=== PATIENT | male | born 1970 | race Caucasian/White ===

== ENCOUNTER 2017-12-11 15:37 | Emergency (ER) | END 2017-12-11 18:34 | disposition home or self-care (01) ==

== ENCOUNTER 2018-11-13 08:58 | Emergency (ER) | payer MEDICAID ==
[~2018-11-13] VITALS: Ht 172.7 cm; Wt 65.0 kg
[~2018-11-13 08:58] MED LIST: CEPH-443 PO; CLOT30CR24 TOP; Ciprofloxacin PO; IBUP-1542 PO; INSU100I14 SC; LANT3I SC; RISP-7 PO
[2018-11-13] MEDS ORDERED: LORAZEPAM 2 MG INJ IM STA (09:00)
[2018-11-13] MEDS ORDERED: HALOPERIDOL 5 MG INJ IM STA (09:00)
[2018-11-13 09:30] VITALS: Ht 172.7 cm; Wt 65.0 kg
--- NOTE | 2018-11-13 11:04 | PSY ---
Date/Time of Note Date/Time of Note DATE: 11/13/18 TIME: 11:03 Psychiatric Subjective Eval Subjective Evaluation Patient location: emergency Chief Complaint: BIBA FOR PSYCHOSIS,HYPERVERBAL,HYPERELIGIOUS History of present illness ATTEMPTED TO SPEAK TO THE PT BUT HE IS TOO DROWSY. Medical history Problems Medical Problems: (1) Acute psychosis Status: Acute (2) Acute psychosis Status: Acute (3) Altered level of consciousness Status: Acute (4) Cellulitis of right ankle Status: Acute (5) Foot ulcer Status: Acute (6) New onset type 2 diabetes mellitus Status: Acute (7) Tinea pedis Status: Acute Allergies: Coded Allergies: No Known Allergy (Unverified , 10/18/14) Unknown: Unable to obtain (Unverified , 06/15/15) Psychiatric Objective Eval Mental Status Examination: Laboratory Results Laboratory Tests Test 11/13/18 10:00 White Blood Count 6.7 10^3/ul Red Blood Count 4.89 10^6/ul Hemoglobin 14.5 g/dl Hematocrit 42.3 % Mean Corpuscular Volume 86.5 fl Mean Corpuscular Hemoglobin 29.7 pg Mean Corpuscular Hemoglobin Concent 34.3 g/dl Red Cell Distribution Width 11.9 % Platelet Count 267 10^3/UL Mean Platelet Volume 10.1 fl Immature Granulocytes % 0.500 % Neutrophils % 63.1 % Lymphocytes % 22.4 % Monocytes % 6.2 % Eosinophils % 7.2 % Basophils % 0.6 % Nucleated Red Blood Cells % 0.0 /100WBC Immature Granulocytes # 0.030 10^3/ul Neutrophils # 4.2 10^3/ul Lymphocytes # 1.5 10^3/ul Monocytes # 0.4 10^3/ul Eosinophils # 0.5 10^3/ul Basophils # 0.0 10^3/ul Nucleated Red Blood Cells # 0.0 10^3/ul Sodium Level 137 mmol/L Potassium Level 4.6 mmol/L Chloride Level 96 mmol/L Carbon Dioxide Level 25 mmol/L Anion Gap 16 Blood Urea Nitrogen 19 mg/dl Creatinine 0.63 mg/dl Est Glomerular Filtrat Rate mL/min > 60 mL/min Glucose Level 452 mg/dl Calcium Level 9.9 mg/dl Total Bilirubin 0.3 mg/dl Direct Bilirubin 0.00 mg/dl Indirect Bilirubin 0.3 mg/dl Aspartate Amino Transf (AST/SGOT) 29 IU/L Alanine Aminotransferase (ALT/SGPT) 19 IU/L Alkaline Phosphatase 128 IU/L Total Protein 8.0 g/dl Albumin 4.6 g/dl Globulin 3.40 g/dl Albumin/Globulin Ratio 1.35 Ethyl Alcohol Level < 10.0 mg/dl Assessment and Plan Assessment/Diagnosis Diagnosis PSYCHOSIS Recommendation/Plan Discharge Disposition: Other (Other) Legal Status: Place involuntary hold Other PLEASE CALL BACK FOR THE CONSULTATION AFTER THE PT WILL BE FULLY AWAKE AND ALERT. HERRERA PRAKASH MD Nov 13, 2018 11:04
--- NOTE | 2018-11-13 11:22 | ERD ---
ER Documentation Chief Complaint Chief Complaint BIBA FOR PSYCHOSIS,HYPERVERBAL,HYPERELIGIOUS HPI Patient is a 47-year-old male with diabetes who presents saying "I am Jeff". Please note the history and physical exam is limited secondary to the patient's agitation and flight of ideas. He is resetting yarsani phrases. He was b rought in by ambulance. He came from an apartment. Upon review of old medical records this is the patient's fifth visit to the ER since 2014. ROS All systems reviewed and are negative except as per history of present illness. Medications Home Meds Active Scripts Ibuprofen* (Motrin*) 600 Mg Tab, 600 MG PO Q6H PRN for PAIN AND OR ELEVATED TEMP , #30 TAB Prov:BRUCE KRISHNAMURTHY NP 12/11/17 Cephalexin* (Keflex*) 500 Mg Capsule, 500 MG PO QID for 10 Days, CAP Prov:BRUCE KRISHNAMURTHY NP 12/11/17 Clotrimazole* (Clotrimazole* AF) 1% - 30 Gm Cream.gm., 1 APPLIC TOP BID for 7 Days, TUB Prov:BRUCE KRISHNAMURTHY NP 12/11/17 Insulin Lispro (Humalog) 100 U/Ml Insuln.pen, 18 UNITS SC WITH MEALS for 30 Days, EA Prov:SHANE HERNANDEZ MD 04/24/15 [Ciprofloxacin] 500 MG TAB No Conflict Check, 500 MG PO BID@06,18 for 3 Days, TAB Prov:SHANE HERNANDEZ MD 04/24/15 Risperidone* (Risperdal*) 1 Mg Tab, 1 MG PO BID for 30 Days Prov:SHANE HERNANDEZ MD 04/24/15 Insulin Glargine* (Lantus*) 100 Unit/Ml Soln, 36 UNIT SC DAILY for 30 Days Prov:SHANE HERNANDEZ MD 04/24/15 Allergies Allergies: Coded Allergies: No Known Allergy (Unverified , 10/18/14) Unknown: Unable to obtain (Unverified , 06/15/15) PMhx/Soc Hx Psychiatric Problems: Yes Hx Miscellaneous Medical Probl: Yes (Diabetes) Smoking Status: Unknown if ever smoked FmHx Unable to obtain Physical Exam Vitals Vital Signs Date Temp Pulse Resp B/P (MAP) Pulse Ox O2 O2 Flow FiO2 Time Delivery Rate 11/13/18 98.7 77 18 165/132 98 09:30 (143) Physical Exam Const: Agitated and residing yarsani phrases Head: Atraumatic Eyes: Normal Conjunctiva ENT: Normal External Ears, Nose and Mouth. Neck: Full range of motion. No meningismus. Resp: Clear to auscultation bilaterally Cardio: Regular rate and rhythm, no murmurs Abd: Soft, non tender, non distended. Normal bowel sounds Skin: No petechiae or rashes Back: No midline or flank tenderness Ext: No cyanosis, or edema Neur: Awake and alert, moves all 4 extremities Psych: Psychomotor agitation Result Diagram: 11/13/18 1000 11/13/18 1000 Results 24 hrs Laboratory Tests Test 11/13/18 10:00 White Blood Count 6.7 10^3/ul Red Blood Count 4.89 10^6/ul Hemoglobin 14.5 g/dl Hematocrit 42.3 % Mean Corpuscular Volume 86.5 fl Mean Corpuscular Hemoglobin 29.7 pg Mean Corpuscular Hemoglobin Concent 34.3 g/dl Red Cell Distribution Width 11.9 % Platelet Count 267 10^3/UL Mean Platelet Volume 10.1 fl Immature Granulocytes % 0.500 % Neutrophils % 63.1 % Lymphocytes % 22.4 % Monocytes % 6.2 % Eosinophils % 7.2 % Basophils % 0.6 % Nucleated Red Blood Cells % 0.0 /100WBC Immature Granulocytes # 0.030 10^3/ul Neutrophils # 4.2 10^3/ul Lymphocytes # 1.5 10^3/ul Monocytes # 0.4 10^3/ul Eosinophils # 0.5 10^3/ul Basophils # 0.0 10^3/ul Nucleated Red Blood Cells # 0.0 10^3/ul Sodium Level 137 mmol/L Potassium Level 4.6 mmol/L Chloride Level 96 mmol/L Carbon Dioxide Level 25 mmol/L Anion Gap 16 Blood Urea Nitrogen 19 mg/dl Creatinine 0.63 mg/dl Est Glomerular Filtrat Rate mL/min > 60 mL/min Glucose Level 452 mg/dl Calcium Level 9.9 mg/dl Total Bilirubin 0.3 mg/dl Direct Bilirubin 0.00 mg/dl Indirect Bilirubin 0.3 mg/dl Aspartate Amino Transf (AST/SGOT) 29 IU/L Alanine Aminotransferase (ALT/SGPT) 19 IU/L Alkaline Phosphatase 128 IU/L Total Protein 8.0 g/dl Albumin 4.6 g/dl Globulin 3.40 g/dl Albumin/Globulin Ratio 1.35 Salicylates Level Pending Acetaminophen Level Pending Ethyl Alcohol Level < 10.0 mg/dl Current Medications Medications Dose Sig/Roberta Start Time Status Last (Trade) Ordered Route PRN Stop Time Admin Dose Reason Admin Lorazepam 2 mg ONCE STAT 11/13/18 DC 11/13/18 (Ativan) IM 09:00 11/13/18 09:28 09:01 Haloperidol 5 mg ONCE STAT 11/13/18 DC 11/13/18 (Haldol) IM 09:00 11/13/18 09:28 09:01 Insulin 20 unit ONCE ONCE 11/13/18 Human SC 11:30 11/13/18 Lispro 11:31 (Humalog) Procedures/MDM Patient is a 47-year-old male who presents with agitation and what appears to be acute psychosis. The patient has hyperglycemia but no signs of diabetic ketoacidosis. The patient was given Haldol and Ativan for his safety and safety of staff. He was given Humalog 20 units subcutaneous for hyperglycemia but he has no signs of diabetic ketoacidosis. The patient is medically clear for psychiatric transfer at this time. The patient was seen by Dr. Ro from psychiatry but was not awake to get a good psychiatric evaluation done. Critical Care: Time: 35 minutes excluding all billable procedures. Treatments/Evaluations: Close monitoring and treatment of unstable vital signs, cardiorespiratory, and neurologic status, while maintaining tight balance of fluid, respiratory, and cardiac interventions. Departure Diagnosis: Primary Impression: Acute psychosis Additional Impression: Hyperglycemia Condition: ANGIE Vasques MD Nov 13, 2018 11:22
[2018-11-13] MEDS ORDERED: INSULIN LISPRO 100 UNIT/ML VIAL SC ONE (11:30)
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
--- NOTE | 2018-11-14 05:15 | EN ---
Date/Time of Note Date/Time of Note DATE: 11/14/18 TIME: 05:15 ER Progress Note Psychiatric Observation Note: Indication: Psychosis Duration: Greater than 20 hours Family history: As documented in original HPI The patient was observed with serial exams over the above timeframe. The patient continued to be well-appearing, and observation continued without complication. All other needs have been met during emergency department stay. Routine psychiatric medications ordered: Appreciated Hold status: Patient is still pending placement. Patient was relatively docile ADELE LOTT Nov 14, 2018 05:15
[2018-11-14] MEDS ORDERED: INSULIN REGULAR, HUMAN 100 UNIT/1 ML 3ML VIAL SC ONE (11:00)
--- NOTE | 2018-11-14 12:49 | EN ---
Date/Time of Note Date/Time of Note DATE: 11/14/18 TIME: 12:49 ER Progress Note Patient resting comfortably in the emergency department under my supervision. Blood sugar was noted to be elevated and was controlled with insulin. Patient remains pending psychiatric evaluation as he seems to still have ongoing symptoms that require hospitalization. YASIR GILMORE Nov 14, 2018 12:49
[2018-11-14] MEDS ORDERED: INSULIN ASPART [NOVOLOG] 3 ML PEN SC ONE (18:00)
[2018-11-15] MEDS ORDERED: INSULIN LISPRO 100 UNIT/ML VIAL SC STA (04:55)
--- NOTE | 2018-11-15 05:33 | EN ---
Date/Time of Note Date/Time of Note DATE: 11/15/18 TIME: 05:32 ER Progress Note Psychiatric Observation Note: Indication: Psychosis Duration: Greater than 4 hours Family history: As documented in original HPI The patient was observed with serial exams over the above timeframe. The patient continued to be well-appearing, and observation continued without complication. All other needs have been met during emergency department stay. Routine psychiatric medications ordered: Pending placement. Sugar noted to be elevated. Subcu insulin ordered. Hold status: Patient is still pending placement. He continued to be disorganized and agitated requiring sedation and only now is awake to have a conversation with the telemetry medicine psychiatrist. Placement status: Pending evaluation ADELE LOTT Nov 15, 2018 05:33
[2018-11-15] MEDS ORDERED: INSULIN LISPRO 100 UNIT/ML VIAL SC ONE (07:30)
[2018-11-15 12:59] VITALS: BP 112/67; PULSE 97; RESP 17
== END 2018-11-15 13:10 | disposition home or self-care (01) ==
LOC: E/R 08:58
DX: F23 Brief psychotic disorder (principal); E11.65 Type 2 diabetes mellitus with hyperglycemia; Z79.4 Long term (current) use of insulin
CPT/HCPCS: 36415; 80053; 80307; 81003; 82962; 85025; 96372; J1630; J1815; J2060; Z7502; Z7610